=== PATIENT | female | born 2000 | race Caucasian/White ===

== ENCOUNTER 2021-10-12 00:06 | Emergency (ER) | payer OTHER, SELFPAY ==
--- NOTE | ~2021-10-12 | CT_ITS ---
EXAMINATION: CT pelvis w con DATE: 10/12/2021 01:58 INDICATION: Severe right-sided pelvic pain post intercourse TECHNIQUE: High resolution computed tomography (CT) of the pelvis was performed with 100 mL Omnipaque -350 intravenous contrast. Additional sagittal and coronal reconstructions were performed. Automated exposure control and iterative reconstruction technique were employed. The dose-length product was 24 7.87 mGy-cm. COMPARISON: None FINDINGS: Visualized caudal tip of the liver and inferior poles of both kidneys are normal. There is inflammato ry stranding surrounding the appendix which is mildly dilated to 9 mm consistent with acute appendici tis. Remainder of the visualized bowels are normal. Bladder is normal. T-shaped IUD in expected posit ion within the endometrial canal of the anteverted uterus. Bilateral adnexal cysts measuring 3.0 cm o n the left, 2.0 cm on the right and with an intervening 4.3 cm cyst at the posterior midline more lik sandra arising from the right ovary. No free intraperitoneal gas or pathologically enlarged lymphadenopa thy in the pelvis. There is a deformity with central defect at the sacrum and coccyx with central def ect extending caudally from the level of S3 which may represent a developmental spinal dysraphism. IMPRESSION: 1. Acute appendicitis. 2. Bilateral adnexal cysts. 3. IUD in expected position. 4. 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 Reviewed, dictated and finalized at location A.
[2021-10-12 00:08] VITALS: BP 131/68; PULSE 103; RESP 18; TEMP 36.2; O2SAT 100
[2021-10-12 00:37] LABS: Alanine Aminotransferase 19 U/L (6-35); Alkaline Phosphatase 74 U/L (38-126); Anion Gap 12 mmol/L (8-16); Aspartate Amino Transferase 30 U/L (14-36); Bilirubin,Total 0.5 mg/dL (0.2-1.3); Blood Urea Nitrogen 12 mg/dL (7-17); Calcium 8.9 mg/dL (8.4-10.2); Carbon Dioxide 21 mmol/L (22-30); Chloride 104 mmol/L (98-107); Estimated CRCL calculation 92 ml/min; Estimated Glomerular Filt Rate > 60; Glucose 85 mg/dL (65-110); Lipase 167 U/L (23-300); Potassium 3.7 mmol/L (3.4-5.0); Sodium 137 mmol/L (137-145)
[2021-10-12 01:03] LABS: Basophils Percent Auto 0.4 % (0.2-1.2); Eosinophils Absolute Auto 0.1 K/mm3 (0-0.3); Eosinophils Percent Auto 1.3 % (0-4.4); Hematocrit 41.5 % (37.0-47.0); Hemoglobin 13.6 g/dL (12.0-15.0); Immature Granulocyte Absolute 0.02 K/mm3 (0.00-0.031); Immature Granulocyte Percent A 0.2 % (0-0.5); Lymphocytes Absolute Auto 4.18 K/mm3 (0.9-3.2); Lymphocytes Percent Auto 43.1 % (18.3-44.2); Mean Corpuscular HGB Conc 32.8 g/dl (32-36); Mean Corpuscular Hemoglobin 26.1 pg (26-34); Mean Corpuscular Volume 79.7 fl (80-100); Monocytes Absolute Auto 0.9 K/mm3 (0.1-0.6); Monocytes Percent Auto 9.5 % (2.6-8.5); Neutrophils Absolute Auto 4.4 K/mm3 (1.3-6.7); Neutrophils Percent Auto 45.5 % (45.5-73.1); Platelet Count Result 282 k/mm3 (150-375); Red Blood Count 5.21 M/mm3 (4.2-5.4); Red Cell Distribution Width 13.8 % (11.5-14.5); White Blood Count 9.7 K/mm3 (4.5-10.0)
[2021-10-12 01:22] LABS: Appearance Urine Clear (Clear); Bilirubin Urine Negative (Negative); Blood Urine Negative (Negative); Color Urine Yellow (Yellow); Glucose Urine UA Negative (Negative); Ketones Urine Negative (Negative); Leukocyte Esterase Ur Trace LEU/UL (Negative); Nitrate Urine Negative (Negative); Protein Urine Negative (Negative); Urobilinogen Urine 0.2 mg/dL (<2.0)
[2021-10-12 01:25] LABS: Add Urine Microscopic? NO; Bacteria Urine Trace /hpf; Mucus Urine Rare /lpf; RBC Urine 0-2 /hpf (0-2); Squamous Epithelial Cell Urine Rare /hpf (Few); WBC Urine 0-3 /hpf
[2021-10-12] MEDS: ONDANSETRON INJ 4 MG/2 ML VIAL IV PUSH (01:26)
[2021-10-12] MEDS: KETOROLAC 15 MG/ML VIAL (*BKC) IV PUSH (02:04)
--- NOTE | 2021-10-12 03:40 | ED.ABDPAIN ---
HPI - Abdominal Pain General Chief Complaint: Abdominal Pain Stated Complaint: increased pain after sex Time Seen by Provider: 10/12/21 00:34 History of Present Illness HPI narrative: 20-year-old female with history of ovarian cysts presents here after severe pelvic pain worse in the right while she was having intercourse, she states that this happened in the past about a week ago, was found to have ruptured cyst at the time. It feels similar today. Also endorses nausea and vomiting. Denies any vaginal discharge, very low concern for UTI or STD and she has had negative testing in the past. Related Data Allergies Allergy/AdvReac Type Severity Reaction Status Date / Time morphine Allergy Other Verified 10/12/21 00:10 Review of Systems Review of Systems: All systems reviewed & are unremarkable except as noted in HPI and below PMFSH Past Medical History Medical History Ovarian cyst Exam Narrative: EXAMINATION OF ORGAN SYSTEMS/BODY AREAS: Constitutional: Vital signs per nursing GENERAL: Appears quite uncomfortable in bed, actively retching HEAD: Normal with no signs of head trauma. EYES: EOMI, conjunctiva normal ENT: Hearing grossly intact LUNGS: Nonlabored breathing. HEART: [Regular rate and rhythm] ABD: [Soft], [mildly tender to palpation right pelvic region] : Tenderness to palpation in right adnexa, no vaginal discharge EXT: Normal range of motion SKIN: [No rashes or lesions.] NEURO: [Alert and oriented x 3. No gross focal sensory or strength deficits.] PSYCH: Normal affect Course Course Emergency Course: 20yoF h/o ovarian cysts p/w severe R pelvic pain during intercourse, VSS and exam shows uncomfortable appearing patient with TTP R adnexa on exam. Ddx incl ruptured ovarian cyst, ovarian torsion, less likely PID given sudden onset of sx and no fevers or vaginal discharge, less likely ectopic/preg given recent neg test with IUD, and less likely appy given sudden onset sx w/o f/c. Labs here nl and CT pelvis no acute abnormality. On re-eval patient resting comfortably and feeling much better s/p meds, I feel much less likely torsion and she is given strict return precautions if symptoms start again to return here for TVUS. 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 Vital Signs Vital signs: Vital Signs Temperature 97.2 F L 10/12/21 00:08 Pulse Rate 103 H 10/12/21 00:08 Respiratory Rate 18 10/12/21 00:08 Blood Pressure 131/68 10/12/21 00:08 Pulse Oximetry 100 10/12/21 00:08 Temperature 97.2 F L 10/12/21 00:08 Pulse Rate 103 H 10/12/21 00:08 Respiratory Rate 18 10/12/21 00:08 Blood Pressure 131/68 10/12/21 00:08 Pulse Oximetry 100 10/12/21 00:08 MDM - Abdominal Pain Lab Data Result diagrams: 10/12/21 00:22 10/12/21 00:22 Labs: Lab Results 10/12/21 10/12/21 10/12/21 Range/Units 00: 00:22 01:12 WBC 9.7 (4.5-10.0) K/mm3 RBC 5.21 (4.2-5.4) M/mm3 Hgb 13.6 (12.0-15.0) g/dL Hct 41.5 (37.0-47.0) % MCV 79.7 L (80-100) fl MCH 26.1 (26-34) pg MCHC 32.8 (32-36) g/dl RDW 13.8 (11.5-14.5) % Plt Count 282 (150-375) k/mm3 MPV 10.0 (7.4-10.4) fl Immature Gran % (Auto) 0.2 (0-0.5) % Neut % (Auto) 45.5 (45.5-73.1) % Lymph % (Auto) 43.1 (18.3-44.2) % Mathews % (Auto) 9.5 H (2.6-8.5) % Eos % (Auto) 1.3 (0-4.4) % Baso % (Auto) 0.4 (0.2-1.2) % Lymph # (Auto) 4.18 H (0.9-3.2) K/mm3 Mathews # (Auto) 0.9 H (0.1-0.6) K/mm3 Eos # (Auto) 0.1 (0-0.3) K/mm3 Baso # (Auto) 0.0 (0.0-0.1) K/mm3 Abs Immat Gran (auto) 0.02 (0.00-0.031) K/mm3 Absolute Neuts (auto) 4.4 (1.3-6.7) K/mm3 Absolute Nucleated RBC 0.0 (0.0-0.012) K/mm3 Nucleated RBC % 0.0 (0.0-0.2) % Sodium 137 (137-145) mmol/L Potassium 3.7 (3.4-5.0) mmol/L Chloride 104 (98-107) mmol/L Carbon Dioxide 21 L (22-
== END 2021-10-12 04:42 | disposition home or self-care (01) ==
PROVIDERS: Emergency Provider Emergency Medicine
DX: K35.80 Unspecified acute appendicitis (principal); Z97.5 Presence of (intrauterine) contraceptive device; N94.89 Other specified conditions associated with female genital organs and menstrual cycle
CPT/HCPCS: 36415; 72193; 80053; 81003; 81025; 83690; 85025; 87491; 87591; 96374; 96375; 99284; J1885; J2405; Q9967